=== PATIENT | male | born 1980 | race Two or more races ===

== ENCOUNTER 2022-06-16 09:07 | Emergency (ER) | payer OTHER ==
[~2022-06-16] VITALS: Ht 180.3 cm; Wt 80.7 kg
[2022-06-17] MEDS ORDERED: FLONASE16 GM NASAL (06:09)
[2022-06-17] MEDS ORDERED: PHENAGIL TABLE1 EACH PO (06:09)
[2022-06-17] MEDS ORDERED: KETO10TA2 PO (06:11)
== END 2022-06-16 13:44 | disposition home or self-care (01) ==
LOC: ER 09:07
DX: R51.9 Headache, unspecified (principal); J40 Bronchitis, not specified as acute or chronic; B34.9 Viral infection, unspecified

== ENCOUNTER 2022-06-17 03:20 | Emergency (ER) | payer OTHER ==
[~2022-06-17] VITALS: Ht 180.3 cm; Wt 80.7 kg
[2022-06-17] MEDS ORDERED: PHENAGIL TABLE1 EACH PO (06:09)
[2022-06-17] MEDS ORDERED: FLONASE16 GM NASAL (06:09)
[2022-06-17] MEDS ORDERED: KETO10TA2 PO (06:11)
== END 2022-06-17 06:17 ==
LOC: ER
DX: J32.9 Chronic sinusitis, unspecified (principal); R51.9 Headache, unspecified